=== PATIENT | female | born 1955 | race Caucasian/White ===

== ENCOUNTER 2017-10-18 15:46 | Emergency (ER) | payer OTHER ==
[~2017-10-18] VITALS: Ht 170.2 cm; Wt 95.3 kg
[~2017-10-18 15:46] MED LIST: AMLO-105 PO; BUPR-156 PO; DICY20TA70 PO; LOR5/325 PO; NORE-5 PO
[2017-10-18] MEDS ORDERED: ASPI-760 PO (15:56)
[2017-10-18] MEDS ORDERED: NORE-120 PO (15:56)
--- NOTE | 2017-10-18 16:16 | ER Report ---
History and Physical Time Seen By MD: 16:00 Hx. of Stated Complaint: FALL ON STAIRS YESTERDAY - BILAT ANKLE/FEET PAIN. HPI/ROS CHIEF COMPLAINT: Fall, right ankle and foot injury, left foot injury HISTORY OF PRESENT ILLNESS: And is a 62-year-old female accompanied by her , who presents the ED with complaint of a fall that occurred yesterday when she was walking up 3 outdoor steps resulting in injuries to her right ankle and bilateral feet. She states that she slipped on the steps and twisted both of her feet. She states that her pain is primarily in the lateral aspect of her right ankle and foot and has noted some swelling and bruising in these areas. She also has noted some pain, swelling, bruising in the left 1st through 3rd toes. She states that she believes she had a previous fracture of her left midfoot. She has been applying ice and heat to these areas with some mild relief. She did take a hydrocodone that she had leftover from a previous ER visit for a rib fracture and this did help with some of her pain. REVIEW OF SYSTEMS: Respiratory: No cough, no dyspnea. Cardiovascular: No chest pain, no palpitations. Gastrointestinal: No vomiting, no abdominal pain. Musculoskeletal: See history of present illness. Allergies: Coded Allergies: Penicillins (Verified Allergy, Intermediate, 10/18/17) Anesthetics - Kiya Type- Parabens (Verified Adverse Reaction, Intermediate, VOMTING, 10/18/17) Home Meds Reported Medications Norethindrone AC-Eth Estradiol (Jevantique Lo 0.5 mg-2.5 Mcg) 0.5 Mg-2.5 Mcg Tablet, 1 TAB PO DAILY 10/18/17 Aspirin (LOW DOSE ASPIRIN EC) 81 Mg Tablet.dr, 81 MG PO DAILY 10/18/17 Dicyclomine Hcl (DICYCLOMINE HCL) 20 Mg Tablet, 20 MG PO BID 07/16/17 Bupropion Hcl (BUPROPION HCL SR) 150 Mg Tablet.er, 150 MG PO BID, #10 TAB 07/16/17 Amlodipine Besylate/Benazepril (LOTREL 10-20 MG CAPSULE) 1 Each Capsule, 0.5 TAB PO QDAY, CAPSULE 04/25/15 Discontinued Reported Medications Norethind Ac/Ethinyl Estradiol (FEMHRT 0.5 MG-2.5 MCG TABLET) 1 Each Tablet, 1 TAB PO QDAY 04/25/15 Discontinued Scripts Hydrocodone Bit/Acetaminophen (HYDROCODON-ACETAMINOPHEN 5-325) 1 Each Tablet, 1 EACH PO Q4-6H Y for PAIN, #15 TAB 0 Refills TAKE ONE TABLET BY MOUTH EVERY 4-6 HOURS NEEDED FOR PAIN Prov:DUDLEY MATTHEW MD 07/16/17 Reviewed Nurses Notes: Yes Old Medical Records Reviewed: Yes Hx Smoking: No Hx Substance Use Disorder: No Constitutional Vital Sign - Last 24 Hours 10/18/17 15:50 Temp 98.9 Pulse 99 Resp 18 B/P (MAP) 153/82 Pulse Ox 99 Physical Exam General Appearance: The patient is alert, has no immediate need for airway protection and no current signs of toxicity. Patient appears to be in no acute distress. Respiratory: Chest is non tender, lungs are clear to auscultation. Cardiac: regular rate and rhythm Musculoskeletal: Neck: Neck is supple and non tender. There is pain with palpation of the right lateral ankle. There is ecchymosis and swelling in this area. There appears to be a small abrasion as well this area. Patient also has pain with palpation of the right 5th metatarsal area. There is some midfoot pain as well. PT and DP pulses are 2+ with normal capillary refill. Normal sensation. Full range of motion with pain. There is pain with palpation of the 1st, 2nd, 3rd toes of the left foot. The 1st and 3rd toes do appear to have some swelling and ecchymosis. PT and DP pulses are 2+ with normal capillary refill. Normal sensation. Full range of motion with some pain. Skin: No rashes or lesions. [ ] DIFFERENTIAL DIAGNOSIS: After history and physical exam differential diagnosis was considered for bilateral foot and right ankle injuries including fracture, strain, contusion, abrasion. Medical Decision Making EKG/Imaging Imaging Bilateral Foot and Right Ankle Xrays: FINDINGS: Right ankle: Small flake along the dorsal aspect of the talus. This is in a slightly different position than a similar focus shown in 2015. No acute bony injury in the ankle is otherwise evident. Chronic ossification center at the tip of the medial malleolus with a smaller corticated focus at the tip of the lateral malleolus. Mild lateral soft tissue swelling. Right foot: Flake over the dorsal aspect of the distal talus, as above. Chronic bony center along the proximal dorsal corner of the navicular. Degenerative spurring along the navicular cuneiform articulations. Prominent plantar calcaneal spurring. Bony structures in the toes and forefoot are intact. Articular relationships are well-preserved throughout. Left foot: Dorsal spurring between the navicular and cuneiforms as well as the talonavicular. Plantar calcaneal spurring. No acute-appearing bony finding. IMPRESSION: 1. Mild lateral soft tissues laterally in the right ankle. Chronic appearing ossification centers of the tips of the medial and laterally likely. 2. Age-indeterminate flake along the dorsal aspect of the distal right talus. 3. No other acute bony finding in the right ankle or right foot. 4. Degenerative changes in the left foot. No acute bony finding. Report Dictated By: Jovani Mccullough MD at 10/18/2017 4:42 PM Report E-Signed By: Jovani Mccullough MD at 10/18/2017 4:47 PM ED Course/Re-evaluation ED Course Will obtain bilateral foot and right ankle x-rays. She will be given Tdap vaccine. 10/18/2017 5:05:00 pm - discussed all x-ray results with patient. There does not appear to be any acute fracture. Discussed that she likely has a right ankle sprain and some contusion to the left toes as well. We'll place her in a right ankle stirrup splint and offered her crutches. We'll give her referral to orthopedics as well. Decision to Disposition Date: Oct 18, 2017 Decision to Disposition Time: 17:05 Depart Departure Latest Vital Signs Vital Signs Date Time Temp Pulse Resp B/P (MAP) Pulse Ox O2 Delivery O2 Flow Rate FiO2 10/18/17 15:50 98.9 99 18 153/82 99 Impression: Primary Impression: Right ankle sprain Additional Impressions: Contusion of left great toe without damage to nail, initial encounter Contusion of left lesser toe(s) without damage to nail, initial encounter Condition: Improved Disposition: HOME OR SELF-CARE Referrals: TRUDY GARNER MD (PCP) Patient Instructions: Ankle Sprain (ED), Foot Contusion (ED) Additional Instructions: Rest, ice, elevate. May take Tylenol or ibuprofen for pain relief. Use splint as needed. Follow-up with primary care provider in orthopedic surgery in 2-3 days. If having any worsening or concerning symptoms may return to the emergency department. Problem Qualifiers Primary Impression: Right ankle sprain Encounter type: initial encounter Involved ligament of ankle: unspecified ligament Qualified Codes: S93.401A - Sprain of unspecified ligament of right ankle, initial encounter JOSE ALBERTO MADISON PA-C Oct 18, 2017 16:16
[2017-10-18] MEDS ORDERED: DIPHTH/TETANUS/ACEL. PERTUSSIS IM ONLY ONE (16:20)
--- NOTE | 2017-10-18 16:52 | RADIOLOGY IMAGING REPORT ---
FACILITY: [facility] PATIENT NAME: Rebekah Maxwell : 1955 MR: [id number] V: [id number] EXAM DATE: ORDERING PHYSICIAN: JOSE ALBERTO MADISON TECHNOLOGIST: Location: [facility] [place] Patient: Rebekah Maxwell : 1955 Visit/Account:[id number] Date of Sevice: 10/18/2017 EXAMINATION: Right ankle, 3 views Right foot, 3 views Left foot, 3 views 10/18/2017 4:09 PM HISTORY: right lateral ankle pain COMPARISON: Right foot series 04/25/2015 FINDINGS: Right ankle: Small flake along the dorsal aspect of the talus. This is in a slightly different positi on than a similar focus shown in 2014. No acute bony injury in the ankle is otherwise evident. Chroni c ossification center at the tip of the medial malleolus with a smaller corticated focus at the tip o f the lateral malleolus. Mild lateral soft tissue swelling. Right foot: Flake over the dorsal aspect of the distal talus, as above. Chronic bony center along the proximal dorsal corner of the navicular. Degenerative spurring along the navicular cuneiform articul ations. Prominent plantar calcaneal spurring. Bony structures in the toes and forefoot are intact. Ar ticular relationships are well-preserved throughout. Left foot: Dorsal spurring between the navicular and cuneiforms as well as the talonavicular. Plantar calcaneal spurring. No acute-appearing bony finding. IMPRESSION: 1. Mild lateral soft tissues laterally in the right ankle. Chronic appearing ossification centers of the tips of the medial and laterally likely. 2. Age-indeterminate flake along the dorsal aspect of the distal right talus. 3. No other acute bony finding in the right ankle or right foot. 4. Degenerative changes in the left foot. No acute bony finding. Report Dictated By: Jovani Mccullough MD at 10/18/2017 4:42 PM Report E-Signed By: Jovani Mccullough MD at 10/18/2017 4:47 PM WSN:[id number]
--- NOTE | 2017-10-18 16:52 | RADIOLOGY IMAGING REPORT ---
FACILITY: [facility] [place] PATIENT NAME: Rebekah Maxewll : 1955 MR: [id number] V: [id number] EXAM DATE: ORDERING PHYSICIAN: JOSE ALBERTO MADISON TECHNOLOGIST: Location: [facility] Patient: Rebekah Maxwell : 1955 Visit/Account:[id number] Date of Sevice: 10/18/2017 EXAMINATION: Right ankle, 3 views Right foot, 3 views Left foot, 3 views 10/18/2017 4:09 PM HISTORY: right lateral ankle pain COMPARISON: Right foot series 04/25/2015 FINDINGS: Right ankle: Small flake along the dorsal aspect of the talus. This is in a slightly different positi on than a similar focus shown in 2014. No acute bony injury in the ankle is otherwise evident. Chroni c ossification center at the tip of the medial malleolus with a smaller corticated focus at the tip o f the lateral malleolus. Mild lateral soft tissue swelling. Right foot: Flake over the dorsal aspect of the distal talus, as above. Chronic bony center along the proximal dorsal corner of the navicular. Degenerative spurring along the navicular cuneiform articul ations. Prominent plantar calcaneal spurring. Bony structures in the toes and forefoot are intact. Ar ticular relationships are well-preserved throughout. Left foot: Dorsal spurring between the navicular and cuneiforms as well as the talonavicular. Plantar calcaneal spurring. No acute-appearing bony finding. IMPRESSION: 1. Mild lateral soft tissues laterally in the right ankle. Chronic appearing ossification centers of the tips of the medial and laterally likely. 2. Age-indeterminate flake along the dorsal aspect of the distal right talus. 3. No other acute bony finding in the right ankle or right foot. 4. Degenerative changes in the left foot. No acute bony finding. Report Dictated By: Jovani Mccullough MD at 10/18/2017 4:42 PM Report E-Signed By: Jovani Mccullough MD at 10/18/2017 4:47 PM WSN:[id number]
--- NOTE | 2017-10-18 16:53 | RADIOLOGY IMAGING REPORT ---
[place] [facility] [place]: Rebekah Maxwell : 1955 MR: [id number] V: [id number] EXAM DATE: ORDERING PHYSICIAN: JOSE ALBERTO MADISON TECHNOLOGIST: Location: [facility] [place] Patient: Rebekah Maxwell : 1955 Visit/Account:[id number] Date of Sevice: 10/18/2017 EXAMINATION: Right ankle, 3 views Right foot, 3 views Left foot, 3 views 10/18/2017 4:09 PM HISTORY: right lateral ankle pain COMPARISON: Right foot series 04/25/2015 FINDINGS: Right ankle: Small flake along the dorsal aspect of the talus. This is in a slightly different positi on than a similar focus shown in 2014. No acute bony injury in the ankle is otherwise evident. Chroni c ossification center at the tip of the medial malleolus with a smaller corticated focus at the tip o f the lateral malleolus. Mild lateral soft tissue swelling. Right foot: Flake over the dorsal aspect of the distal talus, as above. Chronic bony center along the proximal dorsal corner of the navicular. Degenerative spurring along the navicular cuneiform articul ations. Prominent plantar calcaneal spurring. Bony structures in the toes and forefoot are intact. Ar ticular relationships are well-preserved throughout. Left foot: Dorsal spurring between the navicular and cuneiforms as well as the talonavicular. Plantar calcaneal spurring. No acute-appearing bony finding. IMPRESSION: 1. Mild lateral soft tissues laterally in the right ankle. Chronic appearing ossification centers of the tips of the medial and laterally likely. 2. Age-indeterminate flake along the dorsal aspect of the distal right talus. 3. No other acute bony finding in the right ankle or right foot. 4. Degenerative changes in the left foot. No acute bony finding. Report Dictated By: Jovani Mccullough MD at 10/18/2017 4:42 PM Report E-Signed By: Jovani Mccullough MD at 10/18/2017 4:47 PM WSN:[id number]
[2017-10-18 17:19] VITALS: BP 141/92
== END 2017-10-18 17:43 | disposition home or self-care (01) ==
LOC: ER 16:12
DX: S93.401A Sprain of unspecified ligament of right ankle, initial encounter (principal); W18.30XA Fall on same level, unspecified, initial encounter
CPT/HCPCS: 73610; 73630; 90471; 90715; 99283; L1930